=== PATIENT | male | born 2005 | race African-American/Black ===

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

== ENCOUNTER 2025-09-07 06:12 | Emergency (ER) | payer MEDICAID ==
[~2025-09-07] VITALS: Ht 170.2 cm; Wt 70.4 kg
== END 2025-09-07 07:03 | disposition left against medical advice (07) ==
LOC: ER 06:12
DX: S01.81XD Laceration without foreign body of other part of head, subsequent encounter (principal); Z53.21 Procedure and treatment not carried out due to patient leaving prior to being seen by health care provider; X58.XXXD Exposure to other specified factors, subsequent encounter